=== PATIENT | male | born 1995 | race Caucasian/White ===

== ENCOUNTER 2022-07-06 13:24 | Inpatient (IN) | payer OTHER ==
[2022-07-06 16:50] LABS: BASO % 0.9 % (0-2.0); HEMATOCRIT 44.8 % (35.4-49); HEMOGLOBIN 14.4 GM/dL (11.7-16.9); LYMPH % 33.9 % (8-40); MCH 28.8 pg (25.7-33.7); MCHC 32.1 g/dl (32.0-35.9); MEAN CELL VOLUME 89.6 fl (80-96); MEAN PLT VOLUME 6.4 fl (7.5-11.1); MONO % 6.5 % (3.8-10.2); NEUT % 57.7 % (42.8-82.8); PLATELET COUNT 334 10^3/uL (134-434); RDW 13.6 % (11.9-15.9); WHITE BLOOD COUNT 8.9 K/mm3 (4.0-10.0)
[2022-07-06 16:56] LABS: EPI CELLS 3 /uL (0-25.1); HYALINE CASTS 1 /uL (0-3.1); URINE APPEARANCE CLEAR; URINE BILIRUBIN 1+ (NEGATIVE); URINE COLOR DK YELLOW; URINE GLUCOSE (UA) NEGATIVE (NEGATIVE); URINE KETONE TRACE (NEGATIVE); URINE LEUK ESTERASE TRACE (NEGATIVE); URINE NITRITE POSITIVE (NEGATIVE); URINE PROTEIN 1+ (NEGATIVE); URINE RBC 3 /uL (0-23.9); URINE WBC 7 /uL (0-25.8)
[2022-07-06] MEDS ORDERED: LABETALOL HCL 100 MG TABLET (FP) PO ONE (18:02)
[2022-07-06] MEDS ORDERED: LABETALOL HCL 100 MG TABLET (FP) ONE (18:09)
[2022-07-06 18:56] LABS: URINE BACTERIA 3 /uL (0-1359)
[2022-07-06 18:57] LABS: CALCIUM 8.8 mg/dL (8.5-10.1)
[2022-07-06 18:58] LABS: BLOOD UREA NITROGEN 10.3 mg/dL (7-18)
[2022-07-06 19:00] LABS: CREATININE 0.9 mg/dL (0.55-1.3)
[2022-07-06 19:02] LABS: BILIRUBIN,TOTAL 0.9 mg/dL (0.2-1); TOT PROT 7.9 g/dl (6.4-8.2)
[2022-07-06] MEDS ORDERED: LABETALOL HCL 5 MG/1 ML (100MG/20 ML VIAL) IVPUSH ONE ×2 (20:34→21:35)
[2022-07-06] MEDS ORDERED: LABETALOL IN NACL, ISO-OSMOTIC 300 MG/300 ML BAG IV SCH ×2 (21:00→21:45)
[2022-07-06 21:30] LABS: COCAINE, UR NEGATIVE (NEGATIVE); METHADONE, UR NEGATIVE (NEGATIVE); URINE AMPHETAMINES NEGATIVE (NEGATIVE); URINE BARBITURATES NEGATIVE (NEGATIVE); URINE BENZODIAZEPINES NEGATIVE (NEGATIVE)
[2022-07-06 21:31] LABS: OPIATES, URI POSITIVE (NEGATIVE); PHENCYCLIDINE,URINE NEGATIVE (NEGATIVE)
[2022-07-06] MEDS ORDERED: LABETALOL HCL 5 MG/1 ML (100MG/20 ML VIAL) ONE (21:42)
[2022-07-07] MEDS ORDERED: hydrALAZINE HCL 20 MG/ML VIAL IVPUSH PRN (02:32)
[2022-07-07 06:15] VITALS: BMI 46.3
[2022-07-07] MEDS ORDERED: LABETALOL IN NACL, ISO-OSMOTIC 300 MG/300 ML BAG IV SCH (06:45)
[2022-07-07] MEDS ORDERED: amLODIPine BESYLATE 10 MG TABLET (FP) PO SCH (10:00)
[2022-07-07] MEDS ORDERED: MUPIROCIN 2% TOPICAL OINTMENT FOR DECOLONIZATION NS SCH (10:00)
[2022-07-07] MEDS ORDERED: LABETALOL HCL 100 MG TABLET (FP) PO SCH (10:00)
[2022-07-07] MEDS ORDERED: LOSARTAN POTASSIUM 50 MG TABLET PO SCH (10:00)
[2022-07-07] MEDS ORDERED: LOSARTAN POTASSIUM 50 MG TABLET PO ONE (12:00)
[2022-07-07 14:12] VITALS: RESP 17
[2022-07-07 15:33] VITALS: PULSE 56; TEMP 97.6
[2022-07-07 15:35] VITALS: BP 143/90
[2022-07-07] MEDS ORDERED: CHLORHEXIDINE GLUCONATE 4% CLEANSER FOR DECOLONIZATION TP SCH (22:00)
== END 2022-07-07 16:34 | disposition home or self-care (01) | DRG 305 ==
LOC: JER 13:24 → JERBED 18:29 → JICU 07-07 06:18
PROVIDERS: ADMIT Internal Medicine Pulmonary Disease; ATTEND Internal Medicine Pulmonary Disease
DX: I16.0 Hypertensive urgency (principal); Z68.42 Body mass index [BMI] 45.0-49.9, adult; E66.9 Obesity, unspecified
CPT/HCPCS: 0241U-QW; 36415; 80053; 80307; 81003; 84484; 85025; 87086; 93005; 93010; 93306-TC; 93976; 99285-25; G0378